=== PATIENT | female | born 1990 | race Caucasian/White ===

== ENCOUNTER 2019-12-28 17:29 | Outpatient (CLI) | payer OTHER ==
[2019-12-28] MEDS ORDERED: ACETAMINOPHEN 325 MG TABLET ONE (18:19)
[2019-12-28] MEDS ORDERED: ACETAMINOPHEN 325 MG TABLET PO ONE (18:27)
[2019-12-28 18:28] LABS: APPEARANCE,URINE SLIGHTLY-CLOUDY; BILIRUBIN,URINE NEGATIVE (NEGATIVE); COLOR,URINE YELLOW; GLUCOSE, URINE NEGATIVE (NEGATIVE); KETONES,URINE TRACE mg/dL (NEGATIVE); LEUKOCYTE ESTERASE,URINE TRACE (NEGATIVE); NITRITE,URINE NEGATIVE (NEGATIVE); PROTEIN,URINE NEGATIVE (NEGATIVE); URINE SPECIFIC GRAVITY 1.019; UROBILINOGEN,URINE NEGATIVE mg/dL (<2.0)
[2019-12-28 18:47] LABS: URINE AMPHETAMINES SCREEN NEGATIVE; URINE BARBITURATES SCREEN NEGATIVE; URINE BENZODIAZEPINES SCREEN NEGATIVE; URINE COCAINE SCREEN NEGATIVE; URINE MARIJUANA (THC) SCREEN NEGATIVE; URINE METHADONE SCREEN NEGATIVE; URINE PHENCYCLIDINE SCREEN NEGATIVE
== END 2019-12-28 20:30 | disposition home or self-care (01) ==
LOC: LC 17:29
PROVIDERS: ATTEND Obstetrics & Gynecology Gynecology
PROC: 4A1HXCZ Monitoring of Products of Conception, Cardiac Rate, External Approach (ICD-10-PCS; principal; 2019-12-28)
DX: Z34.93 Encounter for supervision of normal pregnancy, unspecified, third trimester (principal); Z3A.30 30 weeks gestation of pregnancy
CPT/HCPCS: 80307; 81001

== ENCOUNTER 2020-02-25 12:29 | Outpatient (CLI) | payer OTHER ==
[2020-02-25 13:00] LABS: APPEARANCE,URINE SLIGHTLY-CLOUDY; BILIRUBIN,URINE NEGATIVE (NEGATIVE); COLOR,URINE STRAW; GLUCOSE, URINE NEGATIVE (NEGATIVE); KETONES,URINE NEGATIVE (NEGATIVE); LEUKOCYTE ESTERASE,URINE TRACE (NEGATIVE); NITRITE,URINE NEGATIVE (NEGATIVE); PROTEIN,URINE NEGATIVE (NEGATIVE); URINE SPECIFIC GRAVITY 1.004; UROBILINOGEN,URINE NEGATIVE mg/dL (<2.0)
[2020-02-25 13:19] LABS: URINE AMPHETAMINES SCREEN NEGATIVE; URINE BARBITURATES SCREEN NEGATIVE; URINE BENZODIAZEPINES SCREEN NEGATIVE; URINE COCAINE SCREEN NEGATIVE; URINE MARIJUANA (THC) SCREEN NEGATIVE; URINE METHADONE SCREEN NEGATIVE; URINE PHENCYCLIDINE SCREEN NEGATIVE
[2020-02-25] MEDS ORDERED: RINGERS SOLUTION,LACTATED 1,000 ML IV PRN (13:26)
[2020-02-25] MEDS ORDERED: CEFTRIAXONE INJ 1000 MG VIAL IV ONE (13:29)
[2020-02-25] MEDS ORDERED: CEFTRIAXONE INJ 1000 MG VIAL ONE (13:37)
[2020-02-25] MEDS ORDERED: HYDROXYZINE PAMOATE 50 MG CAPSULE PO ONE (14:49)
[2020-02-25] MEDS ORDERED: HYDROXYZINE PAMOATE 50 MG CAPSULE ONE (14:50)
--- NOTE | 2020-02-25 15:32 | Non Stress Test Report ---
Non Stress Test Datetime Report Generated by CPN: 02/25/2020 15:32 DEMOGRAPHIC Test Number: 1 EGA NST: 38.3 INDICATION Indication for Study (NST) Other: IUP 38.3 week Labor Check MONITORING Monitor Explained: Monitor Explained; Test Explained; Patient Verbalized Understanding Time on Monitor: 02/25/2020 13:43 Time off Monitor: 02/25/2020 14:09 NST Duration: 26 NST INTERVENTIONS NST Interventions: PO Hydration Physician Notified NST: Dr. Yoon BABY A: [id number] BABY A Movement : Present Contraction Frequency : Rare FHR Baseline : 135 Accelerations : 15X15 Decelerations : None Variability : Moderate 6-25bpm NST Review: Meets Criteria for Reactive NST NST Review and Verified By : Paresh Brownlee RN NST Results: Reactive NST REPORT Report Trigger: Send Report
== END 2020-02-25 15:12 | disposition home or self-care (01) ==
LOC: LC 12:29
PROVIDERS: ATTEND Student in an Organized Health Care Education/Training Program
DX: O23.43 Unspecified infection of urinary tract in pregnancy, third trimester (principal); O99.333 Smoking (tobacco) complicating pregnancy, third trimester; F17.210 Nicotine dependence, cigarettes, uncomplicated; Z3A.38 38 weeks gestation of pregnancy
CPT/HCPCS: 59025; 94760; 81001; 80307; J0696

== ENCOUNTER 2020-03-08 00:31 | Outpatient (CLI) | payer OTHER ==
[2020-03-08 01:15] LABS: APPEARANCE,URINE CLEAR; BILIRUBIN,URINE NEGATIVE (NEGATIVE); COLOR,URINE COLORLESS; GLUCOSE, URINE NEGATIVE (NEGATIVE); KETONES,URINE NEGATIVE (NEGATIVE); LEUKOCYTE ESTERASE,URINE SMALL (NEGATIVE); NITRITE,URINE NEGATIVE (NEGATIVE); PROTEIN,URINE NEGATIVE (NEGATIVE); URINE SPECIFIC GRAVITY 1.001; UROBILINOGEN,URINE NEGATIVE mg/dL (<2.0)
[2020-03-08 02:51] LABS: URINE AMPHETAMINES SCREEN NEGATIVE; URINE BARBITURATES SCREEN NEGATIVE; URINE BENZODIAZEPINES SCREEN NEGATIVE; URINE COCAINE SCREEN NEGATIVE; URINE MARIJUANA (THC) SCREEN NEGATIVE; URINE METHADONE SCREEN NEGATIVE; URINE PHENCYCLIDINE SCREEN NEGATIVE
== END 2020-03-08 01:41 | disposition home or self-care (01) ==
LOC: LC 00:31
PROVIDERS: ATTEND Obstetrics & Gynecology Gynecology
DX: O47.1 False labor at or after 37 completed weeks of gestation (principal); O48.0 Post-term pregnancy; O99.333 Smoking (tobacco) complicating pregnancy, third trimester; F17.210 Nicotine dependence, cigarettes, uncomplicated; Z3A.40 40 weeks gestation of pregnancy
CPT/HCPCS: 59025; 80307; 81005; 84112

== ENCOUNTER 2020-03-13 07:08 | Inpatient (IN) | payer OTHER ==
[2020-03-13] MEDS ORDERED: RINGERS SOLUTION,LACTATED 1,000 ML IV ONE (07:59)
[2020-03-13] MEDS ORDERED: PENICILLIN G POTASSIUM 5,000,000 UNIT in DEXTROSE 5%-WATER 100 ML IV ONE (07:59)
[2020-03-13] MEDS ORDERED: RINGERS SOLUTION,LACTATED 1,000 ML IV PRN (07:59)
--- NOTE | 2020-03-13 08:18 | Admission Physical ---
Datetime Report Generated by CPN: 03/13/2020 08:17 CURRENT ADMISSION Chief Complaint: Scheduled Induction of Labor Indication for Induction: Post Dates Admit Impression : Term, Intrauterine ; No Active Labor Admit Plan: Initiate Labor Induction Protocol ALLERGIES Medication Allergies: No Medication Allergies: No Known Allergies (03/13/2020) Latex: No Latex Allergies Food Allergies: None Environmental Allergies: None OBSTETRICAL HISTORY EDC: 03/07/2020 00:00 : 2 Para: 1 Term: 1 : 0 SAB: 0 IAB: 0 Ectopic: 0 Livin Cesareans: 0 VBACs: 0 Multiple Births: 0 Gestational Diabetes: No Rh Sensitization: No Incompetent Cervix: No VENKAT: No Infertility: No ART Treatment: No Uterine Anomaly: No IUGR: No Hx Previous C/S: No Macrosomia: No Hx Loss/Stillborn: No PIH: No Hx : No Placenta Previa/Abruption: No Depression/PP Depression: No PTL/PROM: No Post Hemorrhage: No Current Procedures: Ultrasound; NST Obstetrical History Comments: G1- 2013,39.5 induced, NVD G2- Current SEE RECORDS Alcohol: No Marijuana : No Cocaine: No Other Illicit Drugs: No Cigarettes: Current Everyday Smoker. [id number] MEDICAL HISTORY Diabetes: No Blood Transfusion: No Pulmonary Disease (Asthma, TB): No Breast Disease: No Hypertension: No Nitroglycerin Neutralizer Surgery: No Heart Disease: No Hosp/Surgery: Yes Autoimmune Disorder: No Anesthetic Complications: No Kidney Disease: No Abnormal Pap Smear: No Neuro/Epilepsy: No Psychiatric Disorders: No Other Medical Diseases: No Hepatitis/Liver Disease: No Significant Family History: No Varicosities/Phlebitis: No Trauma/Violence : No Thyroid Dysfunction: No Medical History Comments: Childbirth INFECTIOUS HISTORY Gonorrhea: No Genital Herpes: No Chlamydia: No Tuberculosis: No Syphilis: No Hepatitis: No HIV/AIDS Exposure: No Rash or Viral Illness: No HPV: No PHYSICAL EXAM General: Normal HEENT: Normal Neurologic: Normal Thyroid: Normal Heart: Normal Lungs: Normal Breast: Normal Back: Normal Abdomen: Normal Genitourinary Exam: Normal Extremities: Normal DTRs: Normal Pelvic Type: Adequate Physical Exam Comments: cervix exam per DrGerry Yoon 3cm Vital Signs: Reviewed FETUS A EGA: 40.6 Monitoring: External US FHR- Baseline: 140 Variability: Moderate 6-25bpm Accelerations: 15X15 Decelerations: None FHR Category: Category I Presentation: Vertex Admit Comment: GBS POS plans epidural AROM 3-4 hrs after 1st dose of PCN PLANS FOR LABOR AND DELIVERY Labor and Delivery: None Pain Management: Medications; Epidural Feeding Preference: Breast Benefit of Breast Feed Discussed: Yes Circumcision: Yes INFORMED CONSENT Assignment: Daiana Yoon MD Signature: with User ID: [email or web address] : with User ID: [email or web address]
[2020-03-13 08:35] LABS: ABSOLUTE EOSINOPHILS # (AUTO) 0.1 10^3/uL (0.0-0.6); ABSOLUTE LYMPHOCYTES (AUTO) 2.3 10^3/uL (0.5-4.7); ABSOLUTE MONOCYTES (AUTO) 0.6 10^3/uL (0.1-1.4); ABSOLUTE NEUT (AUTO) 7.5 10^3/uL (1.7-8.2); BASOPHILS % (AUTO) 0.4 % (0-2); EOSINOPHILS % (AUTO) 1.3 % (0-6); HEMATOCRIT 28.5 % (36.0-47.0); LYMPHOCYTES % (AUTO) 21.9 % (13-45); MEAN CORPUSCULAR HEMOGLOBIN 30.8 pg (27.0-33.4); MEAN CORPUSCULAR HGB CONC 35.2 g/dL (32.0-36.0); MEAN CORPUSCULAR VOLUME 88 fl (80-97); MONOCYTES % (AUTO) 6.1 % (3-13); PLATELET COUNT 281 10^3/uL (150-450); RED BLOOD COUNT 3.25 10^6/uL (3.72-5.28); RED CELL DISTRIBUTION WIDTH 14.1 % (11.5-14.0); SEGMENTED NEUTROPHILS % (AUTO) 70.3 % (42-78); TOTAL CELLS COUNTED % (AUTO) 100 %; WHITE BLOOD COUNT 10.7 10^3/uL (4.0-10.5)
[2020-03-13 08:41] LABS: APPEARANCE,URINE SLIGHTLY-CLOUDY; BILIRUBIN,URINE NEGATIVE (NEGATIVE); COLOR,URINE YELLOW; GLUCOSE, URINE 50 mg/dL (NEGATIVE); KETONES,URINE NEGATIVE (NEGATIVE); LEUKOCYTE ESTERASE,URINE MODERATE (NEGATIVE); NITRITE,URINE NEGATIVE (NEGATIVE); PROTEIN,URINE NEGATIVE (NEGATIVE); URINE SPECIFIC GRAVITY 1.012; UROBILINOGEN,URINE NEGATIVE mg/dL (<2.0)
[2020-03-13 09:02] LABS: URINE AMPHETAMINES SCREEN NEGATIVE; URINE BARBITURATES SCREEN NEGATIVE; URINE BENZODIAZEPINES SCREEN NEGATIVE; URINE COCAINE SCREEN NEGATIVE; URINE MARIJUANA (THC) SCREEN NEGATIVE; URINE METHADONE SCREEN NEGATIVE; URINE PHENCYCLIDINE SCREEN NEGATIVE
[2020-03-13] MEDS ORDERED: OXYTOCIN/0.9 % SODIUM CHLORIDE 30 UNIT/500 ML RTUINJ IV PRN ×2 (09:31→17:19)
[2020-03-13] MEDS ORDERED: MAG HYDROX/AL HYDROX/SIMETH SUSP 30 ML UDCUP PO ONE (10:39)
[2020-03-13] MEDS ORDERED: MAG HYDROX/AL HYDROX/SIMETH SUSP 30 ML UDCUP ONE (10:40)
[2020-03-13] MEDS ORDERED: FENTANYL/BUPIVACAINE/NS/PF 300 MCG/150 ML RTUINJ EPI ONE (11:38)
[2020-03-13] MEDS ORDERED: BUPIVACAINE HCL 0.25 % INJ/PF (2.5 MG/1 ML) 30 ML VIAL ONE ×2 (11:38→11:52)
[2020-03-13] MEDS ORDERED: EPHEDRINE SULFATE INJ 50 MG/1 ML AMPULE ONE (11:38)
[2020-03-13] MEDS: PENICILLIN G POTASSIUM 2,500,000 UNIT in DEXTROSE 5%-WATER 50 ML IV SCH ×2 (12:00→16:30)
[2020-03-13] MEDS ORDERED: DIPHENHYDRAMINE HCL 50 MG/ML VIAL ONE (15:37)
[2020-03-13] MEDS ORDERED: DIPHENHYDRAMINE HCL 50 MG/ML VIAL IV ONE (15:41)
[2020-03-13] MEDS ORDERED: PROMETHAZINE HCL 25 MG TABLET PO PRN (17:19)
[2020-03-13] MEDS ORDERED: MAGNESIUM HYDROXIDE SUSP 30 ML UDCUP PO PRN (17:19)
[2020-03-13] MEDS ORDERED: DIPH/PERTUSS(ACELL)/TETANUS VAC/PF 0.5 ML SYR (>=10YO) IM PRN (17:19)
[2020-03-13] MEDS ORDERED: BENZOCAINE/MENTHOL AEROSOL SPRAY 56 ML TOP PRN (17:19)
[2020-03-13] MEDS ORDERED: GLYCERIN/WITCH HAZEL LEAF 1 EACH MED..WIPE TP PRN (17:19)
[2020-03-13] MEDS ORDERED: ACETAMINOPHEN 325 MG TABLET PO PRN (17:19)
[2020-03-13] MEDS ORDERED: NA PHOS,M-B/NA PHOS,DI-BA (ADULT) 133 ML ENEMA PR PRN (17:19)
[2020-03-13] MEDS ORDERED: PROMETHAZINE HCL INJ 25 MG/1 ML VIAL IV PRN (17:19)
[2020-03-13] MEDS ORDERED: MEASLES,MUMPS&RUBELLA VACC/PF 0.5 ML VIAL SUBCUT PRN (17:19)
[2020-03-13] MEDS ORDERED: PROMETHAZINE HCL 25 MG SUPP.RECT PR PRN (17:19)
[2020-03-13] MEDS ORDERED: DIPHENHYDRAMINE HCL 25 MG CAPSULE PO PRN (17:19)
[2020-03-13] MEDS ORDERED: ZOLPIDEM TARTRATE 5 MG TABLET PO PRN (17:19)
[2020-03-13] MEDS ORDERED: ACETAMINOPHEN WITH CODEINE #3 TABLET PO PRN ×2 (17:19)
[2020-03-13] MEDS ORDERED: DIBUCAINE 1% OINTMENT 28 GM TP PRN (17:19)
[2020-03-13] MEDS ORDERED: PSEUDOEPHEDRINE HCL 30 MG TABLET PO PRN (17:19)
--- NOTE | 2020-03-13 18:02 | Delivery Summary ---
Del Sum A-C Datetime Report Generated by CPN: 03/13/2020 18:02 DELIVERY PERSONNEL DELIVERY PERSONNEL: [id number] Delivery Doctor:: Emilia Rodriguez CNM Nurse Hand Candy Dipper Certified:: Emilia Rodriguez CNM Labor and Delivery Nurse:: Jenna Ann RNequip maint eng Nurse:: GIL Tran Nursery Nurse:: Roxy Hinds RN Nursery Nurse:: GENOVEVA Peters/MICHEAL: Adelina Orozco CNA II MATERNAL INFORMATION Delivery Anesthesia: Epidural Medications After Delivery: Pitocin 30 Units in 500ml NS/D5W Delivery QBL: 100 Delivery QBL Comment: 100 Maternal Complications: None Provider Comments: SVDVM over intact perineum LOP. vigorous, to mothers abd. Cord clamped x 2 cut per FOB after 2 min. Placenta spont via meyers. Bleeding minimal. Apgars 8,9. QBL 100. Mother and infant stable. LABOR SUMMARY EDC: 03/07/2020 00:00 No. Babies in Womb: 1 Attempted: No Labor Anesthesia: Epidural LABOR INFORMATION Reason for Induction: Post Dates Onset of Labor: 03/13/2020 12:00 Complete Dilatation: 03/13/2020 16:27 Oxytocin: Induction Group B Beta Strep: pos Antibiotics # of Doses: 3 Antibiotics Time of Last Dose: 1630 Name of Antibiotic Given: PCN Steroids Given: None Reason Steroids Not Administered: Not Applicable MEMBRANES Membranes Rupture Method: Artificial Rupture of Membranes: 03/13/2020 12:30 Length of Rupture (hr): 4.77 Amniotic Fluid Color: Clear Amniotic Fluid Amount: Moderate Amniotic Fluid Odor: None STAGES OF LABOR Stage 1 hr: 4 Stage 1 min: 27 Stage 2 hr: 0 Stage 2 min: 49 Stage 3 hr: 0 Stage 3 min: 12 Total Time in Labor hr: 5 Total Time in Labor min: 28 VAGINAL DELIVERY Episiotomy: None Laceration #1: Periurethral Laceration Extension #1: First Degree Laceration Repair: Not Applicable Sponge Count Correct: N/A Sharps Count Correct: N/A CSECTION DELIVERY Primary Indication: N/A Secondary Indication: N/A CSection Incidence: N/A Labor: N/A Elective: N/A CSection Incision: N/A BABY A INFORMATION Delivery Date/Time: 03/13/2020 17:16 Method of Delivery: Vaginal Nurse Controlled Delivery: No Born in Route : No : N/A Forceps: N/A Vacuum Extraction: N/A Shoulder Dystocia : No PRESENTATION/POSITION BABY A Presentation: Cephalic Cephalic Presentation: Vertex Vertex Position: Left Occipital Posterior Breech Presentation: N/A PLACENTA INFORMATION BABY A Placenta Delivery Time : 03/13/2020 17:28 Placenta Method of Delivery: Spontaneous Placenta Status: Delivered SCORES BABY A Heart Rate 1 min: >100 bpm Resp Effort 1 min: Good Cry Reflex Irritability 1 min: Cough or Sneeze or Pulls Away Muscle Tone 1 min: Active Motion Color 1 min: Blue/Pale SCORE 1 MIN: 8 Heart Rate 5 min: >100 bpm Resp Effort 5 min: Good Cry Reflex Irritability 5 min: Cough or Sneeze or Pulls Away Muscle Tone 5 min: Active Motion Color 5 min: Body [place], Extremities Blue SCORE 5 MIN: 9 INFORMATION BABY A Gestational Age at Delivery: 40.6 Gestational Status: Full Term- 39- 40.6 Weeks Outcome : Liveborn Condition : Stable Sex: Male IDENTIFICATION BABY A Verification Date/Time: 03/13/2020 17:24 ID Band Number: [id number] Mother's Name Verified: Yes RN Verifying Infant: MMobley, RN Additional Verifying Personnel: Kerry, CNA2 WEIGHT/LENGTH BABY A Infant Birthweight (gm): 3819 Weight (lb): 8 Infant Weight (oz): 7 Infant Length (in): 21.00 Infant Length (cm): 53.34 CORD INFORMATION BABY A No. Cord Vessels: 3 Nuchal Cord : N/A Cord Blood Taken: Yes-For Storage (Mom's Blood type +) Infant Suction: None ASSESSMENT BABY A Infant Complications: Multiple Variable Decels Physical Findings at Delivery: Molding of the Head Skin to Skin: No Skin to Skin Time (min): 40 Infant Care By: KCrimm, RN BABY B INFORMATION : N/A SIGNATURES Assignment: Daiana Yoon MD Signature: with User ID: Mary Beths : with User ID: [email or web address] : I was personally available for consultation and serving as supervising physician for the MLP.
[2020-03-13] MEDS ORDERED: IBUPROFEN 800 MG TABLET ONE (20:47)
[2020-03-13] MEDS: IBUPROFEN 800 MG TABLET PO SCH (23:50)
[2020-03-13] MEDS: FAMOTIDINE 20 MG TABLET PO SCH (23:52)
[2020-03-14] MEDS: IBUPROFEN 800 MG TABLET PO SCH ×3 (05:40→21:07)
[2020-03-14 07:09] LABS: HEMATOCRIT 27.2 % (36.0-47.0); HEMOGLOBIN 9.3 g/dL (12.0-15.5); MEAN CORPUSCULAR HEMOGLOBIN 30.3 pg (27.0-33.4); MEAN CORPUSCULAR HGB CONC 34.1 g/dL (32.0-36.0); MEAN CORPUSCULAR VOLUME 89 fl (80-97); PLATELET COUNT 262 10^3/uL (150-450); RED BLOOD COUNT 3.06 10^6/uL (3.72-5.28); RED CELL DISTRIBUTION WIDTH 13.9 % (11.5-14.0); WHITE BLOOD COUNT 14.1 10^3/uL (4.0-10.5)
[2020-03-14] MEDS: DOCUSATE SODIUM 100 MG CAPSULE PO SCH ×3 (08:15→17:25)
[2020-03-14] MEDS: FERROUS SULFATE 325 MG TABLET PO SCH ×3 (08:16→17:25)
[2020-03-14] MEDS: FAMOTIDINE 20 MG TABLET PO SCH ×2 (09:30→21:08)
[2020-03-14] MEDS: PRENATAL VITAMIN W DHA CAPSULE PO SCH (09:31)
[2020-03-14] MEDS ORDERED: PROMETHAZINE HCL INJ 25 MG/1 ML VIAL IV PRN (10:00)
[2020-03-14] MEDS ORDERED: DIPH/PERTUSS(ACELL)/TETANUS VAC/PF 0.5 ML SYR (>=10YO) IM PRN (10:00)
[2020-03-14] MEDS ORDERED: MEASLES,MUMPS&RUBELLA VACC/PF 0.5 ML VIAL SUBCUT PRN (10:00)
--- NOTE | 2020-03-14 12:34 | PDOC PROGRESS REPORT ---
Subjective-OB Progress Note for:: 03/14/20 Subjective: reports bleeding slowing, pain controlled with current meds. denies needs. Physical Exam (OB) Vital Signs: Temp Pulse Resp BP Pulse Ox 97.6 F 88 16 107/56 L 99 03/14/20 08:00 03/14/20 08:00 03/14/20 08:00 03/14/20 08:00 03/14/20 08:00 Intake & Output 03/13/20 03/14/20 03/15/20 06:59 06:59 06:59 Intake Total 480 Balance 480 Weight 81.2 kg - Abdomen Description: Soft Hernia Present: No Fundal Description: Firm, Midline Fundal Height: u/u - u/2 - Abdominal Distension: No distension Tenderness: Nontender - Extremities Lower extremities: Zara's sign - neg Calf: Normal, Nontender Objective-Diagnostic Laboratory: 03/14/20 06:45 03/14/20 06:45 WBC 14.1 H RBC 3.06 L Hgb 9.3 L Hct 27.2 L MCV 89 MCH 30.3 MCHC 34.1 RDW 13.9 Plt Count 262 Assessment and Plan(PN) - Time Spent with Patient Time with patient: Less than 15 minutes - Disposition Anticipated Discharge: Home Within: within 24 hours
[2020-03-14] MEDS: SENNOSIDES/DOCUSATE 8.6-50 MG 1 EACH TABLET PO SCH (13:08)
[2020-03-15] MEDS: IBUPROFEN 800 MG TABLET PO SCH (06:37)
[2020-03-15] MEDS: FAMOTIDINE 20 MG TABLET PO SCH (09:29)
[2020-03-15] MEDS: SENNOSIDES/DOCUSATE 8.6-50 MG 1 EACH TABLET PO SCH (09:29)
[2020-03-15] MEDS: DOCUSATE SODIUM 100 MG CAPSULE PO SCH (09:29)
[2020-03-15] MEDS: FERROUS SULFATE 325 MG TABLET PO SCH (09:29)
[2020-03-15] MEDS: PRENATAL VITAMIN W DHA CAPSULE PO SCH (09:29)
--- NOTE | 2020-03-15 10:38 | PDOC DISCHARGE SUMMARY ---
Impression - Admit/DC Date/PCP Admission Date/Primary Care Provider: 03/13/20 07:08 NO LOCALMD Discharge Date: 03/15/20 - PP Day #2, doing well, A+, rubella immune, - Additional Information Resuscitation Status: Full Code Discharge Diet: As Tolerated, Regular Discharge Activity: Activity As Tolerated, No Lifting Over 10 Pounds, Pelvic Rest Referrals: LOCALMD,NO [Primary Care Provider] - Prescriptions: Ferrous Sulfate [Feosol 325 mg Tablet] 325 mg PO DAILY 30 Days #30 tablet Ibuprofen [Motrin 800 mg Tablet] 800 mg PO Q8 #60 tablet Home Medications: 95/Iron Fum/Folic/Dha [ + Dha Combo Pack] 1 cap PO DAILY 12/28/19 Ferrous Sulfate [Feosol 325 mg Tablet] 325 mg PO DAILY 30 Days #30 tablet 03/15/20 Ibuprofen [Motrin 800 mg Tablet] 800 mg PO Q8 #60 tablet 03/15/20 HPI Reason(s) for Admission: Onset of Labor Procedures: Ultrasound Intrapartum Procedure(s): Spontaneous Vaginal Delivery Complication(s): Laceration-Periurethral Laceration-Degree: 1st Results Laboratory Results: WBC 14.1 10^3/uL (4.0-10.5) H 03/14/20 06:45 RBC 3.06 10^6/uL (3.72-5.28) L 03/14/20 06:45 Hgb 9.3 g/dL (12.0-15.5) L 03/14/20 06:45 Hct 27.2 % (36.0-47.0) L 03/14/20 06:45 MCV 89 fl (80-97) 03/14/20 06:45 MCH 30.3 pg (27.0-33.4) 03/14/20 06:45 MCHC 34.1 g/dL (32.0-36.0) 03/14/20 06:45 RDW 13.9 % (11.5-14.0) 03/14/20 06:45 Plt Count 262 10^3/uL (150-450) 03/14/20 06:45 Lymph % (Auto) 21.9 % (13-45) 03/13/20 08:15 Hunt % (Auto) 6.1 % (3-13) 03/13/20 08:15 Eos % (Auto) 1.3 % (0-6) 03/13/20 08:15 Baso % (Auto) 0.4 % (0-2) 03/13/20 08:15 Absolute Neuts (auto) 7.5 10^3/uL (1.7-8.2) 03/13/20 08:15 Absolute Lymphs (auto) 2.3 10^3/uL (0.5-4.7) 03/13/20 08:15 Absolute Monos (auto) 0.6 10^3/uL (0.1-1.4) 03/13/20 08:15 Absolute Eos (auto) 0.1 10^3/uL (0.0-0.6) 03/13/20 08:15 Absolute Basos (auto) 0.0 10^3/uL (0.0-0.2) 03/13/20 08:15 Seg Neutrophils % 70.3 % (42-78) 03/13/20 08:15 Urine Color YELLOW 03/13/20 07:26 Urine Appearance SLIGHTLY-CLOUDY 03/13/20 07:26 Urine pH 6.0 (5.0-9.0) 03/13/20 07:26 Ur Specific Jal 1.012 03/13/20 07:26 Urine Protein NEGATIVE mg/dL (NEGATIVE) 03/13/20 07:26 Urine Glucose (UA) 50 mg/dL (NEGATIVE) H 03/13/20 07:26 Urine Ketones NEGATIVE mg/dL (NEGATIVE) 03/13/20 07:26 Urine Blood NEGATIVE (NEGATIVE) 03/13/20 07:26 Urine Nitrite NEGATIVE (NEGATIVE) 03/13/20 07:26 Urine Bilirubin NEGATIVE (NEGATIVE) 03/13/20 07:26 Urine Urobilinogen NEGATIVE mg/dL (<2.0) 03/13/20 07:26 Ur Leukocyte Esterase MODERATE (NEGATIVE) H 03/13/20 07:26 Urine WBC (Auto) 17 /HPF 03/13/20 07:26 Urine RBC (Auto) 1 /HPF 03/13/20 07:26 Urine Bacteria (Auto) TRACE /HPF 03/13/20 07:26 Squamous Epi Cells Auto 16 /HPF 03/13/20 07:26 Urine Mucus (Auto) RARE /LPF 03/13/20 07:26 Urine Ascorbic Acid NEGATIVE (NEGATIVE) 03/13/20 07:26 Urine Opiates Screen NEGATIVE 03/13/20 07:26 Urine Methadone Screen NEGATIVE 03/13/20 07:26 Ur Barbiturates Screen NEGATIVE 03/13/20 07:26 Ur Phencyclidine Scrn NEGATIVE 03/13/20 07:26 Ur Amphetamines Screen NEGATIVE 03/13/20 07:26 U Benzodiazepines Scrn NEGATIVE 03/13/20 07:26 Urine Cocaine Screen NEGATIVE 03/13/20 07:26 U Marijuana (THC) Screen NEGATIVE 03/13/20 07:26 RPR NONREACTIVE (NONREACTIVE) 03/13/20 08:15 Blood Type A POSITIVE 03/13/20 08:15 Antibody Screen NEGATIVE 03/13/20 08:15 Plan Plan of Treatment: d/c home. f/up with [facility] in 4 weeks for PP check Time Spent: Less than 30 Minutes
[2020-03-15 10:51] VITALS: BP 107/56
== END 2020-03-15 14:32 | disposition home or self-care (01) | DRG 833 ==
LOC: LR 07:08 → 2S 23:25
PROVIDERS: ADMIT Student in an Organized Health Care Education/Training Program; ATTEND Student in an Organized Health Care Education/Training Program
PROC: 10E0XZZ Delivery of Products of Conception, External Approach (ICD-10-PCS; principal; 2020-03-13)
PROC: 0HQ9XZZ Repair Perineum Skin, External Approach (ICD-10-PCS; 2020-03-13)
PROC: 10907ZC Drainage of Amniotic Fluid, Therapeutic from Products of Conception, Via Natural or Artificial Opening (ICD-10-PCS; 2020-03-13)
PROC: 3E033VJ Introduction of Other Hormone into Peripheral Vein, Percutaneous Approach (ICD-10-PCS; 2020-03-13)
DX: O48.0 Post-term pregnancy (principal); O71.82 Other specified trauma to perineum and vulva; Z23 Encounter for immunization; O99.334 Smoking (tobacco) complicating childbirth; F17.210 Nicotine dependence, cigarettes, uncomplicated; O99.824 Streptococcus B carrier state complicating childbirth; Z3A.40 40 weeks gestation of pregnancy
CPT/HCPCS: 1967; 36415; 80307; 81001; 85025; 85027; 86592; 86850; 86900; 86901; C1758; J1200; J2540; J3010; J3490; J7060